=== PATIENT | female | born 1980 | race Caucasian/White ===

== ENCOUNTER → 2018-03-19 | Outpatient (CLI) | payer BC | LOC: CARD 11:22 | PROVIDERS: ATTEND Internal Medicine Cardiovascular Disease | DX: I10 Essential (primary) hypertension (principal); R55 Syncope and collapse; E66.9 Obesity, unspecified; I08.1 Rheumatic disorders of both mitral and tricuspid valves | CPT/HCPCS: 93306 ==

== ENCOUNTER 2019-06-18 12:06 | Emergency (ER) | payer BC ==
[~2019-06-18] VITALS: Ht 162.5 cm; Wt 89.1 kg
[2019-06-18 12:24] LABS: BASOPHILS % (AUTO) 0 % (0-10); EOSINOPHILS % (AUTO) 0 % (0-10); HEMATOCRIT 42 % (35-52); HEMOGLOBIN 14.3 G/DL (11.5-16.0); LYMPHOCYTES # (AUTO) 2.4 X 10^3 (1.0-4.0); LYMPHOCYTES % (AUTO) 17 % (12-44); MEAN CORPUSCULAR HEMOGLOBIN 30 PG (25-34); MEAN CORPUSCULAR HGB CONC 34 G/DL (32-36); MEAN CORPUSCULAR VOLUME 87 FL (80-99); MEAN PLATELET VOLUME 10.8 FL (7.4-10.4); MONOCYTES # (AUTO) 0.8 X 10^3 (0.0-1.0); MONOCYTES % (AUTO) 6 % (0-12); NEUTROPHILS % (AUTO) 78 % (42-75); PLATELET COUNT 310 10^3/uL (130-400); RED CELL DISTRIBUTION WIDTH 12.7 % (10.0-14.5); WHITE BLOOD COUNT 14.2 10^3/uL (4.3-11.0)
[2019-06-18 12:42] LABS: FIBRIN DEGRADATION PRODUCTS 0.35 UG/ML (0.00-0.49); PROTHROMBIN TIME PATIENT 13.6 SEC (12.2-14.7)
[2019-06-18 12:44] LABS: ALANINE AMINOTRANSFERASE 46 U/L (0-55); ALBUMIN 4.7 GM/DL (3.2-4.5); ALKALINE PHOSPHATASE 66 U/L (40-136); BILIRUBIN,TOTAL 0.4 MG/DL (0.1-1.0); BUN/CREATININE RATIO 8; CALCIUM 10.2 MG/DL (8.5-10.1); CARBON DIOXIDE 22 MMOL/L (21-32); CHLORIDE 106 MMOL/L (98-107); CREATININE SERUM 0.84 MG/DL (0.60-1.30); GFR ESTIMATED > 60; GLUCOSE 124 MG/DL (70-105); MAGNESIUM 1.9 MG/DL (1.6-2.4); POTASSIUM 3.4 MMOL/L (3.6-5.0); SODIUM 139 MMOL/L (135-145); TOTAL PROTEIN 7.9 GM/DL (6.4-8.2)
[2019-06-18 13:10] LABS: BASOPHILS % (MANUAL) 0 %; EOSINOPHILS % (MANUAL) 0 %; LYMPHOCYTES % (MANUAL) 18 %; MONOCYTES % (MANUAL) 4 %; NEUTROPHILS % (MANUAL) 78 %; RBC MORPH NORMAL
[2019-06-18] MEDS ORDERED: LACTATED RINGERS 1,000 ML IV ONE (13:17)
--- NOTE | 2019-06-18 13:20 | Diagnostic Imaging Report ---
INDICATION: Chest pain. COMPARISON: None FINDINGS: Single frontal view of the chest demonstrates normal heart size and pulmonary vascularity. The lungs are well aerated and clear. No large pleural effusion or pneumothorax is seen. The visualized osseous structures show no acute abnormalities. IMPRESSION: 1. No acute cardiopulmonary process. Dictated by: Dictated on workstation # [id number]
[2019-06-18 13:23] LABS: BILIRUBIN,URINE NEGATIVE (NEGATIVE); CLARITY,URINE CLEAR; COLOR,URINE AMBER; GLUCOSE, URINE (UA) NEGATIVE (NEGATIVE); KETONES,URINE NEGATIVE (NEGATIVE); LEUKOCYTE ESTERASE ,URINE NEGATIVE (NEGATIVE); NITRITE,URINE NEGATIVE (NEGATIVE); PROTEIN,URINE NEGATIVE (NEGATIVE)
--- NOTE | 2019-06-18 13:30 | ED Chest Pain ---
General Chief Complaint: Chest Pain Stated Complaint: CHEST PAIN Nursing Triage Note: PT AMB TO RM 1 WITH COMPLAINT OF CHEST PAIN, BACK PAIN THAT HAS BEEN INTERMITTENT FOR A MONTH. STATES HAS BEEN TO PCP AND HAD GALLBLADDER WORK UP THAT WAS NEGATIVE. STATES SHE WILL FEEL HER HEART RACING AND AT THAT TIME BP WILL INCREASE. STATES TAKES HTN MED. Nursing Sepsis Screen: No Definite Risk Source: patient Exam Limitations: no limitations History of Present Illness Date Seen by Provider: Jun 18, 2019 Time Seen by Provider: 13:05 Initial Comments Here with report of being complaints of chest pain, palpitations and overall not feeling well that has been going on intermittently over the last month and worse over the last 2 weeks. She has seen her provider and had workup for gallbladder which was negative. She's had diarrhea and stomach upset in the last month as well. She is not sure what going on that she is anxious and concerned about this. Does have family history of heart disease in 16 above and her family as well as thyroid dysfunction. She did have her thyroid checked several months ago but she was not having the symptoms at that time. Denies fever or chills. Denies nausea or vomiting. Has noted some vaginal bleeding without discharge. Denies dysuria. Timing/Duration: intermittent, other (one month) Severity/Quality: burning, other (palpitations) Location: substernal Radiation: back Activities at Onset: none Prior CP/Workup: echocardiography Modifying Factors: improves with rest ASA po PLAYGROUND OFFICIAL: No NTG SL PLAYGROUND OFFICIAL: No Associated Symptoms: abdominal pain, back pain; No nausea/vomiting, No shor tness of breath, No weakness Allergies and Home Medications Allergies Coded Allergies: No Known Drug Allergies (Unverified , 03/02/13) Patient Home Medication List Home Medication List Reviewed: Yes Review of Systems Review of Systems Constitutional: see HPI; No chills, No fever EENTM: No Symptoms Reported Respiratory: No Symptoms Reported Cardiovascular: See HPI, Lightheadedness, Palpitations Gastrointestinal: See HPI Genitourinary: Frequency; Denies Pain Musculoskeletal: no symptoms reported Skin: no symptoms reported All Other Systems Reviewed Negative Unless Noted: Yes Past Lizsvjv-Hqtbmv-Qsfozv Hx Past Med/Social Hx: Reviewed Nursing Past Med/Soc Hx Patient Social History Alcohol Use: Occasionally Uses Recreational Drug Use: No Smoking Status: Never a Smoker Recent Foreign Travel: No Contact w/Someone Who Travel: No Recent Infectious Disease Expo: No Immunizations Up To Date Tetanus Booster (TDap): More than 5yrs PED Vaccines UTD: Yes Past Medical History Surgeries: No Respiratory: No Cardiac: No Neurological: No Reproductive Disorders: No Sexually Transmitted Disease: No HIV/AIDS: No Gastrointestinal: No Musculoskeletal: No Endocrine: No Cancer: No Psychosocial: No Integumentary: No Blood Disorders: No Adverse Reaction/Blood Tranf: No Family Medical History Reviewed Nursing Family Hx No Pertinent Family Hx Physical Exam Vital Signs Vital Signs - First Documented Capillary Refill : Less Than 3 Seconds Height, Weight, BMI Height: '" Weight: 188lbs. oz. 85.058044it; 33.00 BMI Method:Stated General Appearance: No Apparent Distress, WD/WN HEENT: PERRL/EOMI, Pharynx Normal Neck: Non Tender, Supple Respiratory: Lungs Clear, Normal Breath Sounds Cardiovascular: No Murmur, Tachycardia Gastrointestinal: Non Tender, Soft Extremity: Normal Range of Motion, Non Tender Neurologic/Psychiatric: Alert, Oriented x3 Skin: Normal Color, Warm/Dry Progress/Results/Core Measures Results/Orders Lab Results Laboratory Tests Test 06/18/19 12:17 06/18/19 12:21 Range/Units White Blood Count 14.2 H 4.3-11.0 10^3/uL Red Blood Count 4.85 4.35-5.85 10^6/uL Hemoglobin 14.3 11.5-16.0 G/DL Hematocrit 42 35-52 % Mean Corpuscular Volume 87 80-99 FL Mean Corpuscular Hemoglobin 30 25-34 PG Mean Corpuscular Hemoglobin Concent 34 32-36 G/DL Red Cell Distribution Width 12.7 10.0-14.5 % Platelet Count 310 130-400 10^3/uL Mean Platelet Volume 10.8 H 7.4-10.4 FL Neutrophils (%) (Auto) 78 H 42-75 % Lymphocytes (%) (Auto) 17 12-44 % Monocytes (%) (Auto) 6 0-12 % Eosinophils (%) (Auto) 0 0-10 % Basophils (%) (Auto) 0 0-10 % Neutrophils # (Auto) 11.0 H 1.8-7.8 X 10^3 Lymphocytes # (Auto) 2.4 1.0-4.0 X 10^3 Monocytes # (Auto) 0.8 0.0-1.0 X 10^3 Eosinophils # (Auto) 0.0 0.0-0.3 10^3/uL Basophils # (Auto) 0.0 0.0-0.1 10^3/uL Neutrophils % (Manual) 78 % Lymphocytes % (Manual) 18 % Monocytes % (Manual) 4 % Eosinophils % (Manual) 0 % Basophils % (Manual) 0 % Blood Morphology Comment NORMAL Prothrombin Time 13.6 12.2-14.7 SEC INR Comment 1.0 0.8-1.4 Activated Partial Thromboplast Time 29 24-35 SEC D-Dimer 0.35 0.00-0.49 UG/ML Sodium Level 139 135-145 MMOL/L Potassium Level 3.4 L 3.6-5.0 MMOL/L Chloride Level 106 98-107 MMOL/L Carbon Dioxide Level 22 21-32 MMOL/L Anion Gap 11 5-14 MMOL/L Blood Urea Nitrogen 7 7-18 MG/DL Creatinine 0.84 0.60-1.30 MG/DL Estimat Glomerular Filtration Rate > 60 BUN/Creatinine Ratio 8 Glucose Level 124 H 70-105 MG/DL Calcium Level 10.2 H 8.5-10.1 MG/DL Corrected Calcium 8.5-10.1 MG/DL Magnesium Level 1.9 1.6-2.4 MG/DL Total Bilirubin 0.4 0.1-1.0 MG/DL Aspartate Amino Transf (AST/SGOT) 35 H 5-34 U/L Alanine Aminotransferase (ALT/SGPT) 46 0-55 U/L Alkaline Phosphatase 66 40-136 U/L Myoglobin 38.9 10.0-92.0 NG/ML Troponin I < 0.028 <0.028 NG/ML C-Reactive Protein High Sensitivity 0.42 0.00-0.50 MG/DL B-Type Natriuretic Peptide 31.4 <100.0 PG/ML Total Protein 7.9 6.4-8.2 GM/DL Albumin 4.7 H 3.2-4.5 GM/DL TSH [place] Testing 1.11 0.35-4.94 UIU/ML Urine Color ANNAMARIE H Urine Clarity CLEAR Urine pH 6.0 5-9 Urine Specific [place] 1.025 H 1.016-1.022 Urine Protein NEGATIVE NEGATIVE Urine Glucose (UA) NEGATIVE NEGATIVE Urine Ketones NEGATIVE NEGATIVE Urine Nitrite NEGATIVE NEGATIVE Urine Bilirubin NEGATIVE NEGATIVE Urine Urobilinogen 0.2 < = 1.0 MG/DL Urine Leukocyte Esterase NEGATIVE NEGATIVE Urine RBC (Auto) 3+ H NEGATIVE Urine RBC 0-2 /HPF Urine WBC NONE /HPF Urine Squamous Epithelial Cells 5-10 /HPF Urine Crystals PRESENT H /LPF Urine Amorphous Sediment RARE YOSELIN URATES H /LPF Urine Bacteria TRACE /HPF Urine Casts NONE /LPF Urine Mucus MODERATE H /LPF Urine Culture Indicated NO Micro Results Microbiology 06/18/19 Wet Prep - Final, Complete My Orders Orders - SUDEEP HATHAWAY MD Thyroid Analyzer (06/18/19 13:06) Hs C Reactive Protein (06/18/19 13:17) Ua Culture If Indicated (06/18/19 13:17) Lactated Ringers (Lr 1000 Ml Iv Solution (06/18/19 13:17) Wet Prep (06/18/19 13:43) Medications Given in ED Current Medications Medications Dose Ordered Sig/John Route Start Time Stop Time Status Last Admin Dose Admin Lactated Ringer's 1,000 ml @ 0 mls/hr Q0M ONCE IV 06/18/19 13:17 06/18/19 13:18 DC 06/18/19 13:39 0 MLS/HR Vital Signs/I&O 06/18/19 06/18/19 12:08 12:08 Temp 36.7 Pulse 100 Resp 15 B/P (MAP) 149/77 (101) Pulse Ox 100 O2 Delivery Room Air Room Air Blood Pressure Mean: 101 Progress Progress Note : Progress Note Seen and evaluated. IV, labs, EKG and chest x-ray ordered. UA and thyroid st udies added. LR 1 L bolus. Monitor patient. 1423: I did have patient do cell swab for wet prep. Everything is negative at this point patient's heart rate is in the 70s with blood pressure 136/69. She is not having any chest pain. She does admit to some anxiety related to medical health. She does have appointment with Dr. Willett on July 08 for stress test. I have instructed her to follow-up with her doctor for referral for outpatient Holter monitor so that Dr. Willett can review those results at the appointment. Fluids are continuing. I will write short course of metoprolol when necessary for tachycardia. She also admits to hot flashes and intermittent vaginal bleeding and is concerned that she may be approaching menopause. This may be part of the concern. She'll discuss this with her doctor again. Discharged home with return precautions. Patient verbalize understanding instructions and agreement with plan. Initial ECG Impression Date: Jun 18, 2019 Initial ECG Impression Time: 12:12 Initial ECG Rate: 89 Initial ECG Rhythm: Normal Sinus Initial ECG Comparisson: No Previous ECG Available Comment Sinus rhythm with left atrial abnormality. Normal axis. No evidence of ST elevation MS. Interpreted by me. No previous available for comparison. Diagnostic Imaging Diagonstic Imaging: Xray Plain Films/CT/US/NM/MRI: chest Comments [facility] [place] [place] NAME: [facility] REC#: [id number] PT STATUS: REG ER : 1980 PHYSICIAN: COLBY YUNG APRN ADMIT DATE: 06/18/19/ER Draft Date of Exam:06/18/19 CHEST 1 VIEW, AP/PA ONLY INDICATION: Chest pain. COMPARISON: None FINDINGS: Single frontal view of the chest demonstrates normal heart size and pulmonary vascularity. The lungs are well aerated and clear. No large pleural effusion or pneumothorax is seen. The visualized osseous structures show no acute abnormalities. IMPRESSION: 1. No acute cardiopulmonary process. Dictated on workstation # [id number] Dict: 06/18/19 1318 Trans: 06/18/19 1319 [facility] [id number] Interpreted by: PRESLEY MORAN MD Electronically signed by: Departure Impression Primary Impression: Paroxysmal tachycardia, unspecified Additional Impression: Anxiety about health Disposition: 01 HOME, SELF-CARE Condition: Improved Departure-Patient Inst. Decision time for Depature: 14:25 Referrals: NO,LOCAL PHYSICIAN (PCP) Primary Care Physician FRED JI MD Patient Instructions: Tachycardia (DC), Anxiety, Adult (DC) Add. Discharge Instructions: All discharge instructions reviewed with patient and/or family. Voiced understanding. Follow-up with your doctor this week for recheck and further evaluation and to discuss outpatient Holter monitor to see if you can capture one of the tachycardia events. Keep appointment with Dr. Willett as scheduled. You may take the medication ordered. If you have tachycardic event that lasts more than a few minutes. Try self calming measures first and if that doesn't work then take the medicine. Return for chest pain, weakness, breathing problems, vomiting, sweating or other concerns as needed. Scripts Metoprolol Tartrate (Metoprolol Tartrate) 25 Mg Tablet 25 MG PO BID for fast heart rate, #14 TAB 0 Refills Prov: SUDEEP HATHAWAY MD 06/18/19 Copy Copies To 1: FRED JI MD, TIMOTHY D MD Jun 18, 2019 13:30
[2019-06-18 13:39] LABS: BACTERIA,URINE TRACE /HPF; RBC,URINE 0-2 /HPF
[2019-06-18 13:40] LABS: AMORPHOUS SEDIMENT,UR RARE AMOR URATES /LPF
[2019-06-18] MEDS ORDERED: METO-333 PO (14:30)
[2019-06-18] MEDS ORDERED: ANTACID SUSP 30 ML UDC (MYLANTA) PO ONE (15:30)
[2019-06-18] MEDS ORDERED: LIDOCAINE 2% VISCOUS 15 ML UDC PO ONE (15:30)
[2019-06-18] MEDS ORDERED: KETOROLAC 30 MG/ML VIAL ONE (15:36)
[2019-06-18 16:15] VITALS: BP 126/66
--- OUTSIDE RECORDS SUMMARY | 2019-06-20 14:41 | XMS REPORT ---
Author Author Melyssa ESPINAL Organization [facility] Address [address] [place] [address] Care Team Providers Care Shift Lab Technician Name Role Phone JODY ESPINAL Unavailable PROBLEMS Unknown Problems ALLERGIES No Information ENCOUNTERS Encounter Location Date Diagnosis [facility] [address] [facility] [id number] [place] [id number] Feb, Visit for TB skin test Z11.1 [facility] [address] [facility] [place] [id number] [address] Jun, Body aches R52 ; Other viral agents as the cause of diseases classified elsewhere B97.89 and Acute upper respiratory infection, unspecified J06.9 IMMUNIZATIONS No Known Immunizations SOCIAL HISTORY Never Assessed REASON FOR VISIT tb test [place] [facility] PLAN OF CARE Activity Details Follow Up 48-72 hours Reason:TB read Future/Pending Procedure TB INTRADERMAL VITAL SIGNS MEDICATIONS Unknown Medications RESULTS No Results PROCEDURES Procedure Date Ordered Result Body Site TB INTRADERMAL TEST Feb 19, 2018 INSTRUCTIONS MEDICATIONS ADMINISTERED No Known Medications MEDICAL (GENERAL) HISTORY Type Description Date Surgical History wisdom teeth surgery 2006
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
== END 2019-06-18 16:15 | disposition home or self-care (01) ==
LOC: EDUNIT# 12:06 → ER 12:07
DX: I47.9 Paroxysmal tachycardia, unspecified (principal); F41.9 Anxiety disorder, unspecified
CPT/HCPCS: 36415; 71045; 80053; 81000; 83735; 83874; 83880; 84443; 84484; 84703; 85007; 85027; 85379; 85610; 85730; 86141; 87210; 93005; 93041

== ENCOUNTER 2019-08-15 10:02 | Outpatient (RCR) | payer BC ==
[~2019-08-15] VITALS: Ht 162 cm; Wt 86.0 kg
[~2019-08-15 10:02] MED LIST: METO-333 PO
[2019-08-15] MEDS ORDERED: CATHETER FLUSH 10 ML SYR IV PRN (11:00)
[2019-08-15] MEDS ORDERED: REGADENOSON 0.4 MG/5 ML SYR (LEXISCAN) IV ONE ×2 (11:45→12:41)
[2019-08-16 16:37] VITALS: BP 124/72
--- NOTE | 2019-08-16 16:37 | Cardiology Stress Test Report ---
Stress Test Report Type of NM Stress Test: Test Type: LEXISCAN 0.4MG/5ML Date of Procedure/Referring: Date of Procedure: August 15, 2019 PCP Ramo Willett MD Admitting Physician Mervat Hobson MD Indications: Syncope, paroxysmal atrial tachycardia, palpitations Baseline Heart Rate: 66 Baseline Blood Pressure: Blood Pressure Systolic: 124 Blood Pressure Diastolic: 72 Baseline EKG: Baseline EKG: Sinus rhythm Summary & Conclusion: Summary: The patient was brought to the stress lab after informed consent was taken. Stress test was performed according to the Lexiscan protocol. 0.4 mg of IV Lexiscan was given. Low-grade exercise was performed. Baseline EKG showed sinus rhythm at 66 BPM, blood pressure 124/72 mmHg. Maximum heart rate 80 bpm and blood pressure 124/65 mmHg. Patient did not have any chest pain, arrhythmias or ST segment changes during the stress test. 9.99 mCi of Myoview were given for rest imaging and 29.5 mCi of Myoview given for stress imaging. Transient ischemic dilatation score 1.0, EF 73 percent. Normal wall motion. Normal myocardial perfusion imaging during rest and stress. Conclusion: Pharmacological stress test was negative for ischemia. Normal LV function with no wall motion abnormalities. Normal myocardial perfusion imaging during rest and stress. Ramo WILLETT MD August 16, 2019 16:37
== END 2019-11-13 | disposition home or self-care (01) ==
LOC: CARD 10:02
PROVIDERS: ATTEND Internal Medicine Interventional Cardiology
DX: I47.1 Supraventricular tachycardia (principal); I10 Essential (primary) hypertension; Z86.79 Personal history of other diseases of the circulatory system
CPT/HCPCS: 78452; 93017; 93306; A9502

== ENCOUNTER 2021-04-07 11:34 | Outpatient (CLI) | payer BC ==
[~2021-04-07] VITALS: Ht 162.6 cm; Wt 90.9 kg
[2021-04-07 11:39] VITALS: BP 125/63
[2021-04-07] MEDS ORDERED: BAMLANIVIMAB 700 MG/ETESEVIMAB 1,400 MG IN NS IV ONE ×3 (12:00)
[2021-04-07] MEDS ORDERED: diphenhydrAMINE 50 MG/ML INJ (BENADRYL) IV PRN (12:00)
[2021-04-07] MEDS ORDERED: EPINEPHrine INJECTION 1 MG/ML AMP IM PRN (12:00)
[2021-04-07] MEDS ORDERED: ONDANSETRON 4 MG/2 ML (SDV) Z0FRAN IV PRN (12:00)
[2021-04-07] MEDS ORDERED: ACETAMINOPHEN 500 MG TAB (TYLENOL) PO PRN (12:00)
[2021-04-07 12:59] VITALS: BP 128/40
== END 2021-04-07 13:03 ==
LOC: INFUSION 11:34
PROVIDERS: ATTEND Nurse Practitioner Family
DX: U07.1 COVID-19 (principal)